=== PATIENT | female | born 1980 | race Caucasian/White ===

== ENCOUNTER 2023-09-25 09:06 | Emergency (ER) | payer OTHER, SELFPAY ==
[2023-09-25 09:15] VITALS: BP 128/93
[2023-09-25 09:56] VITALS: BP 115/84
[2023-09-25 10:00] VITALS: BMI 28.2
[2023-09-25 10:02] VITALS: BP 115/84
--- NOTE | 2023-09-25 10:23 | ED.GENMED ---
History of Present Illness
General
Chief Complaint: Back Pain
Source: patient
Exam Limitations: none
Time Seen by Provider: 09/25/23 10:08
Travel History
Have you had any contact with someone who has COVID-19?: No
Do you have any symptoms of coronavirus? Fever > 100 degrees, chills, cough, shortness of breath, sore throat, loss of taste or smell, muscle aches, or headache?: No
History of Present Illness
History of Present Illness:
42 year old female who with history of kidney transplant x 3 presents complaining of intermittent right-sided back pain getting worse over the past several weeks. She was diagnosed with bacterial vaginosis at the urgent care last week and has been
on metronidazole gel. She denies fevers but she is on antirejection medications. There has been no vomiting. Pain is not made worse with breathing or eating. No change in bowel movements. No known injury. No other complaints at this time.
Past History
Past History
ED Past Medical History: HTN, Hypercholesterolemia, Renal failure and Other (Crohn's disease and cardiomyopathy , kidney transplant)
ED Past Surgical History: Tonsilectomy and Other (Renal transplant, myringotomy tubes parathyroidectomy)
Social History
Tobacco: Non-smoker
Alcohol: Occasional
Drug: None
Personal: Single
Living: with family
Employment: Not employed
Family History
Family History: Negative Diabetes, Hypertension, Early CAD, Asthma or Cancer
Phy Exam
Physical Exam
Physical Exam:
General: Well-appearing female no acute respiratory distress
HEENT: Normocephalic atraumatic neck is supple
Heart: Regular rate and rhythm no murmurs
Lungs: Clear no wheeze or rales
Abdomen is soft mildly tender to the right mid and upper abdomen. No guarding or rebound negative Luna sign. Slightly tender to the left lower abdomen. Mild right-sided costovertebral angle tenderness as well
Extremities: No cyanosis
Skin warm no rash
Course
Orders/Labs/Results
Orders:
Orders
09/25/23 10:41
Complete Blood Count/With Diff Urgent
Urinalysis Reflex To Culture Urgent
Date Specimen was Collected: 09/25/23
Time Specimen was Collected: 10:30
09/25/23 11:26
Comprehensive Metabolic Panel Routine
Lipase Routine
09/25/23 12:15
US Abdomen Complete/Upper Urgent
Comment:
Reason For Exam: abdominal pain
Abnormal Lab Results
09/25/23 09/25/23
10:41 11:26
MPV 11.6 H fL
(7.4-10.4)
Absolute Neuts (auto) 9.0 H 10^3/uL
(1.4-6.5)
Absolute Lymphs (auto) 1.1 L 10^3/uL
(1.2-3.4)
Neutrophils % 85.8 H %
(42.2-75.2)
Lymphocytes % 10.1 L %
(20.5-51.1)
Chloride 110 H mmol/L
(98-107)
Carbon Dioxide 20 L mmol/L
(22-30)
Urine Ketones Trace A
(Negative)
09/25/23 10:41
09/25/23 11:26
Vital Signs
Initial and Last Documented VS:
Initial Vital Signs
Temp Pulse Resp BP Pulse Ox
98.3 F 80 18 128/93 96
09/25/23 09:15 09/25/23 09:15 09/25/23 09:15 09/25/23 09:15 09/25/23 09:15
Last Documented Vital Signs
Temp Pulse Resp BP Pulse Ox
98.4 F 78 18 115/84 98
09/25/23 10:02 09/25/23 10:02 09/25/23 10:02 09/25/23 10:02 09/25/23 10:02
MDM/Problems Addressed
Differential Diagnosis Includes:
Right mid abdominal pain and back pain. Question biliary colic versus musculoskeletal flank pain. Her functioning kidney transplant is in the right lower quadrant of the abdomen. Do not suspect renal colic we will check kidney functions
urinalysis and start with ultrasound
*Critical Care Note
Total Time (30-74mins, 75-104mins- exclusive of procedures): Not Applicable
Update Note
Update Note:
Ultrasound abdomen shows no obvious acute finding. There is a large mobile gallstone within the gallbladder without secondary signs of cholecystitis. Labs reviewed normal kidney functions normal liver functions and lipase is normal. UA without
any concerning finding. Patient states her pain in her back is improved. Considered CT of the abdomen but not indicated at this time. She plans on following up with her GI team. Stable for the
ED Attending Note
-
Portions of this chart may have been created with voice recognition software.� Occasional wrong word or��sound alike� substitutions may have occurred due to the inherent limitations of voice recognition software.
Discharge Plan
Departure
Patient Disposition: Home (Routine Discharge)
Date of Disposition: 09/25/23
Time of Disposition: 14:43
Patient with high blood pressure during this ER visit?: No
Discharge Problem:
Back pain
Instructions: Low Back Pain (DC)
Prescriptions:
No Action
prednisone 5 MG tablet
5 mg PO DAILY
melatonin 1 MG tablet
3 mg PO PRN PRN (Reason: prn)
tacrolimus 1 MG capsule
1 mg PO BID
azathioprine 50 MG tablet
50 mg PO DAILY
fluoxetine 20 MG capsule
20 mg PO DAILY
amlodipine 5 MG tablet
5 mg PO DAILY
cinacalcet 30 MG tablet
30 mg PO R Q48H
multivitamin [Daily Multiple] 1 EACH tablet
1 ea PO DAILY
labetalol 200 MG tablet
200 mg PO BID
sodium bicarbonate 650 MG tablet
1,300 mg PO BID
simvastatin 20 MG tablet
20 mg PO QPM
calcitriol 0.5 MCG capsule
0.5 mcg PO DAILY
calcium carbonate [Antacid (calcium carbonate)] 1 TABLET tablet,chewable
1,000 mg PO BID
furosemide 20 MG tablet
20 mg PO DAILY
Levonorgestrel
20 mcg VAG ONCE
Patient Comments:
IUD
oxycodone 5 MG tablet
5 mg PO Q6HPRN PRN (Reason: pain) Qty: 6 0RF
Referrals:
Yuan Harris MD [Active] -
Kulwant Salas MD [Family Provider] -
Activity Restrictions/Additional Instructions:
Please return here for worsening symptoms otherwise follow-up with your doctors as planned
Interventions
Interventions:
*Risk Screen - Suicide Last Done: 09/25/23 09:18
*General Assessment Last Done: 09/25/23 09:18
*Neglect/Abuse Screening Last Done: 09/25/23 09:18
*ED COVID-19 Vaccine History Last Done: 09/25/23 10:00
ED-Musculoskeletal Assessment Last Done: 09/25/23 09:56
Discharge Date and Time
Print Language: NIGERIEN
[2023-09-25 10:52] LABS: % Basophils 0.3 % (0-2); % Eosinophils 0.1 % (0-6); % Immature Granulocytes 0.3 % (0-0.5); % Lymphocytes 10.1 % (20.5-51.1); % Monocytes 3.4 % (1.7-9.3); % Neutrophils 85.8 % (42.2-75.2); Absolute Lymphocytes 1.1 10^3/uL (1.2-3.4); Absolute Monocytes 0.4 10^3/uL (0.1-0.6); Hematocrit 41.2 % (37.0-47.0); Hemoglobin 13.9 g/dL (12.0-16.0); Mean Corp Hgb Conc. 33.7 g/dL (33.0-37.0); Mean Corpuscular Hgb 30.5 pg (27.0-31.0); Mean Corpuscular Volume 90.5 fL (81.0-99.0); Mean Platelet Volume 11.6 fL (7.4-10.4); Nucleated Red Blood Cells % 0 %; Platelet Count 186 10^3/uL (130-400); Red Blood Cell Count 4.55 10^6/uL (4.20-5.40); Red Cell Dist. Width 12.5 % (11.5-14.5); White Blood Cell Count 10.4 10^3/uL (4.8-10.8)
[2023-09-25 10:54] LABS: Urine Albumin Negative (Neg - Trace); Urine Bilirubin Negative (Negative); Urine Character Clear (Clear); Urine Color Straw; Urine Glucose Negative (Negative); Urine Ketone Trace (Negative); Urine Leukocyte Negative (Negative); Urine Nitrite Negative (Negative); Urine Occult Blood Negative (Negative); Urine Specific Gravity 1.015 (<1.030); Urine Urobilinogen Negative (Neg - 1+)
[2023-09-25 11:54] LABS: ALT (SGPT) 16 U/L (0-35); AST (SGOT) 23 U/L (14-36); Alkaline Phosphatase 57 U/L (38-126); Blood Urea Nitrogen 12 mg/dl (7-17); Calcium 8.7 mg/dl (8.4-10.2); Carbon Dioxide 20 mmol/L (22-30); Chloride 110 mmol/L (98-107); Estimated Creatinine Clearance 94 ml/min; Glucose 97 mg/dl (70-99); Lipase 153 U/L (23-300); Potassium 4.3 mmol/L (3.5-5.1); Sodium 138 mmol/L (135-145); Total Protein 6.7 g/dl (6.3-8.2); eGFR > 60.00
[2023-09-25 14:59] VITALS: BP 115/70
== END 2023-09-25 14:59 | disposition home or self-care (01) ==
LOC: EMR 09:06
PROVIDERS: Physician Assistant; EMERGENCY PHYSICIAN Emergency Medicine; FAMILY PHYSICIAN Family Medicine
DX: M54.9 Dorsalgia, unspecified (principal)
CPT/HCPCS: 99284; 76700; 80053; 81003; 83690; 85025

== ENCOUNTER 2024-06-06 18:27 | Emergency (ER) | payer OTHER, SELFPAY ==
[2024-06-06 18:33] VITALS: BP 139/93
[2024-06-06 18:58] LABS: % Basophils 0.6 % (0-2); % Eosinophils 0.6 % (0-6); % Immature Granulocytes 0.1 % (0-0.5); % Lymphocytes 22.2 % (20.5-51.1); % Monocytes 5.4 % (1.7-9.3); % Neutrophils 71.1 % (42.2-75.2); Absolute Lymphocytes 1.5 10^3/uL (1.2-3.4); Absolute Monocytes 0.4 10^3/uL (0.1-0.6); Absolute Neutrophils 4.8 10^3/uL (1.4-6.5); Hematocrit 44.5 % (37.0-47.0); Mean Corp Hgb Conc. 33.7 g/dL (33.0-37.0); Mean Corpuscular Volume 91.9 fL (81.0-99.0); Mean Platelet Volume 10.4 fL (7.4-10.4); Nucleated Red Blood Cells % 0 %; Platelet Count 224 10^3/uL (130-400); Red Blood Cell Count 4.84 10^6/uL (4.20-5.40); Red Cell Dist. Width 12.6 % (11.5-14.5); White Blood Cell Count 6.7 10^3/uL (4.8-10.8)
[2024-06-06 19:12] LABS: ALT (SGPT) 23 U/L (0-35); AST (SGOT) 25 U/L (14-36); Albumin 4.6 g/dl (3.5-5.0); Alkaline Phosphatase 61 U/L (38-126); Blood Urea Nitrogen 11 mg/dl (7-17); Calcium 10.4 mg/dl (8.4-10.2); Carbon Dioxide 22 mmol/L (22-30); Chloride 105 mmol/L (98-107); Glucose 98 mg/dl (70-99); Sodium 136 mmol/L (135-145); Total Bilirubin 1.5 mg/dl (0.2-1.3); Total Protein 7.4 g/dl (6.3-8.2); eGFR > 60.00
[2024-06-06 19:18] LABS: Troponin I < 0.012 ng/ml
[2024-06-06] MEDS: TYLENOL 1000 MG PO (20:19)
[2024-06-06 21:24] VITALS: BP 127/94
[2024-06-06] MEDS: FIORICET 1 TAB PO (21:49)
--- NOTE | 2024-06-06 22:16 | ED.GENMED ---
History of Present Illness
General
Chief Complaint: Chest Pain
Time Seen by Provider: 06/06/24 21:01
History of Present Illness
History of Present Illness:
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 Patient reports headache is all around her head. Denies any inciting injury or trauma
at onset of headache. Denies any exertional component. Denies any visual changes. Denies focal weakness or numbness to her extremities. Does note headache in the past, however feels that this is worse. She can taking Tylenol with relief,
however headache then will return. Denies any known sick contacts. Denies any fever. Denies any neck stiffness. Does report that yesterday she was having palpitations and tightness in her chest. Denies known cardiac issues. Denies difficulty
breathing. Denies any medical complaints
Past History
Past History
ED Past Medical History: HTN, Hypercholesterolemia, Renal failure and Other (Crohn's disease and cardiomyopathy , kidney transplant)
ED Past Surgical History: Tonsilectomy and Other (Renal transplant, myringotomy tubes parathyroidectomy)
Social History
Tobacco: Non-smoker
Alcohol: Occasional
Drug: None
Personal: Single
Living: with family
Employment: Not employed
Family History
Family History: Negative Diabetes, Hypertension, Early CAD, Asthma or Cancer
Phy Exam
Physical Exam
Physical Exam:
General: Well-appearing, no clinical signs of dehydration, nontoxic and in no acute distress
HEENT: protecting airway, pupils equal and reactive, extraocular movements intact
Neck: appears supple
CV: Normal heart rate, regular rhythm
Resp: No accessory muscle use, no increased work of breathing, lungs clear to auscultation bilaterally
Abd: Soft and non-distended, no tenderness to palpation
Extremities: No deformities, no swelling
Neuro: alert, no focal neurologic deficit
: deferred
Rectal: deferred
Psych: Normal affect
Skin: Intact
Scores
Heart Score for Chest Pain Patients
STEMI patient?: No
History: Slightly or Non-Suspicious
ECG: Normal
Age: </= 45 years
Risk Factors: No Risk Factors
Troponin: </= Normal Limit
Heart Score for Chest Pain Patients: 0
Heart Score Risk: 2.5% MACE over next 6 weeks
Course
Orders/Labs/Results
Orders:
Orders
06/06/24 18:28
ECG [Electrocardiogram (*1)] Urgent
Reason for Study: Chest Pain
EKG- Treatment ONCE
06/06/24 18:47
Complete Blood Count/With Diff Urgent
Comprehensive Metabolic Panel Urgent
Troponin I Urgent
06/06/24 20:16
Acetaminophen [Tylenol] 1,000 mg .ROUTE .STK-MED ONE
06/06/24 20:19
Acetaminophen [Tylenol] 1,000 mg PO NOW STA
06/06/24 21:45
Butalb/Acetaminophen/Caffeine [Fioricet] 1 tab PO NOW STA
Abnormal Lab Results
06/06/24
18:47
Calcium 10.4 H mg/dl
(8.4-10.2)
Total Bilirubin 1.5 H mg/dl
(0.2-1.3)
06/06/24 18:47
06/06/24 18:47
Vital Signs
Initial and Last Documented VS:
Initial Vital Signs
Temp Pulse Resp BP Pulse Ox
98.1 F 82 18 139/93 100
06/06/24 18:33 06/06/24 18:33 06/06/24 18:33 06/06/24 18:33 06/06/24 18:33
Last Documented Vital Signs
Temp Pulse Resp BP Pulse Ox
98.1 F 78 18 127/94 99
06/06/24 18:33 06/06/24 21:24 06/06/24 21:24 06/06/24 21:24 06/06/24 21:24
MDM/Problems Addressed
MDM/Problems Addressed:
43-year-old female with history of congenital kidney issue status post transplant presenting for headache. Vital signs on arrival are normal.
On exam patient is well-appearing, no acute distress or discomfort. Patient reports she was concerned because the headache was persistent, and felt that her blood pressure was higher than usual. Blood pressure here within normal limits, without
any concern for hypertensive urgency or emergency. Unremarkable cardiac and pulmonary exam. Patient did note some preceding palpitations and chest tightness. EKG nonischemic. Patient had troponin prior to my assessment, undetectable. Patient
low risk for ACS, low risk by heart score, without present concern for ACS. Regarding her headache, appears consistent with tension quality versus migrainous component. No concern for infectious etiology, afebrile, no meningeal signs. No focal
neurologic deficits on exam or concern for acute central neurologic process. No report of trauma or concern for any acute traumatic intracranial abnormality. Blood pressure within normal limits, without concern for pseudotumor cerebri. No
tenderness to the temporal arteries, without concern for temporal arteritis. Do not feel patient requires any advanced imaging. Patient administered Fioricet, cannot receive ibuprofen products. At this time otherwise feel stable for discharge
with continued outpatient supportive therapy. Patient would like to go home. Strict return precautions were communicated and patient verbalized understanding
*EKG
Interpreted by ED Provider?: Yes
EKG Intrepretation Date: 06/06/24
EKG Intrepretation Time: 22:24
Interpretation: normal
Comparison EKG: no changes (10/04/19)
Heart Rate: 74
Rate: normal
Rhythm: sinus
[place]: normal axis
Interval: normal interval
QRS Pattern: normal QRS
Ischemia: no ischemia
*Critical Care Note
Total Time (30-74mins, 75-104mins- exclusive of procedures): Not Applicable
ED Attending Note
-
Portions of this chart may have been created with voice recognition software.� Occasional wrong word or��sound alike� substitutions may have occurred due to the inherent limitations of voice recognition software.
Discharge Plan
Departure
Patient Disposition: Home (Routine Discharge)
Date of Disposition: 06/06/24
Time of Disposition: 22:14
Patient with high blood pressure during this ER visit?: No
Condition: Good
Discharge Problem:
Migraine headache
Instructions: Migraine in adults
Prescriptions:
New
wstdcowbqh-vjpecsojvojsb-womp [Fioricet] 50-300-40 mg capsule
1 cap PO Q8H PRN (Reason: headache) Qty: 7 0RF
No Action
prednisone 5 MG tablet
5 mg PO DAILY
melatonin 1 MG tablet
3 mg PO PRN PRN (Reason: prn)
tacrolimus 1 MG capsule
1 mg PO BID
azathioprine 50 MG tablet
50 mg PO DAILY
fluoxetine 20 MG capsule
20 mg PO DAILY
amlodipine 5 MG tablet
5 mg PO DAILY
cinacalcet 30 MG tablet
30 mg PO R Q48H
multivitamin [Daily Multiple] 1 EACH tablet
1 ea PO DAILY
labetalol 200 MG tablet
200 mg PO BID
sodium bicarbonate 650 MG tablet
1,300 mg PO BID
simvastatin 20 MG tablet
20 mg PO QPM
calcitriol 0.5 MCG capsule
0.5 mcg PO DAILY
calcium carbonate [Antacid (calcium carbonate)] 1 TABLET tablet,chewable
1,000 mg PO BID
furosemide 20 MG tablet
20 mg PO DAILY
Levonorgestrel
20 mcg VAG ONCE
Patient Comments:
IUD
oxycodone 5 MG tablet
5 mg PO Q6HPRN PRN (Reason: pain) Qty: 6 0RF
Referrals:
Kulwant Salas MD [Family Provider] -
Activity Restrictions/Additional Instructions:
You were seen in the emergency department for headache and chest pain
You were found to have normal blood work and EKG. We suspect that you have a migraine.
Please follow-up closely with your primary care physician.
Return to the emergency department for any worsening of your symptoms, or any development of chest pain, difficulty breathing, abdominal pain with persistent vomiting and inability to tolerate food or liquid by mouth (concern for dehydration),
weakness or numbness or extremities, headache or confusion, fever greater than 100.4, or any additional symptoms that are concerning to you.
Thank you for choosing [facility].
Interventions
Interventions:
*Risk Screen - Suicide Last Done: 06/06/24 18:33
*General Assessment Last Done: 06/06/24 18:33
*Neglect/Abuse Screening Last Done: 06/06/24 18:33
ED- Fall Risk Assessment Last Done: 06/06/24 22:22
*ED COVID-19 Vaccine History Last Done: 06/06/24 21:19
*Nursing Disposition Last Done: 06/06/24 22:22
ED- Cardiac Assessment Last Done: 06/06/24 21:23
Discharge Date and Time
Discharge Date/Time: 06/06/24 22:22
Print Language: [place]
== END 2024-06-06 22:22 | disposition home or self-care (01) ==
LOC: EMR 18:27
PROVIDERS: Emergency Medicine; EMERGENCY PHYSICIAN Student in an Organized Health Care Education/Training Program; FAMILY PHYSICIAN Family Medicine
DX: R07.89 Other chest pain (principal); I10 Essential (primary) hypertension; E78.00 Pure hypercholesterolemia, unspecified; K50.90 Crohn's disease, unspecified, without complications; I42.9 Cardiomyopathy, unspecified; Z82.49 Family history of ischemic heart disease and other diseases of the circulatory system; Z94.0 Kidney transplant status; G43.909 Migraine, unspecified, not intractable, without status migrainosus
CPT/HCPCS: 99283; 80053; 84484; 85025; 93005

== ENCOUNTER 2024-06-30 07:34 | Emergency (ER) | payer OTHER, SELFPAY ==
[2024-06-30 07:43] VITALS: BP 127/91
[2024-06-30 09:03] VITALS: BP 131/84; BMI 23.5
--- NOTE | 2024-06-30 09:04 | ED.GENMED ---
History of Present Illness
General
Chief Complaint: Anal/Rectal Problem
Time Seen by Provider: 06/30/24 08:18
History of Present Illness
History of Present Illness:
43-year-old female with history of renal transplant x 2 presents to the emergency department for evaluation of 'anal cyst' that is worsening despite being on Augmentin for the past 2 days. No fevers or chills. No history of similar.
Past History
Past History
ED Past Medical History: HTN, Hypercholesterolemia, Renal failure and Other (Crohn's disease and cardiomyopathy , kidney transplant)
ED Past Surgical History: Tonsilectomy and Other (Renal transplant, myringotomy tubes parathyroidectomy)
Social History
Tobacco: Non-smoker
Alcohol: Occasional
Drug: None
Personal: Single
Living: with family
Employment: Not employed
Family History
Family History: Negative Diabetes, Hypertension, Early CAD, Asthma or Cancer
Review of Systems
Review of Systems
Allergies reviewed?: Yes
All Other Systems: ROS reviewed and negative except as documented in HPI and ROS
Phy Exam
Physical Exam
Physical Exam:
GEN: Well appearing, NAD, WDWN
HEENT: Oral mucosa moist, no scleral icterus
Cardiac: Regular rate
Lung: No respiratory distress, no tachypnea
Rectal: 2 x 1 cm fluctuant abscess just inferior and lateral to the left anal verge with moderate surrounding cellulitis and induration, does not cross the anal verge
MSK: No gross deformity or injuries
Skin: Good color, no pallor or jaundice, no rashes
Neuro: AO x3, moves all extremities freely
Psych: Calm, cooperative
Course
Orders/Labs/Results
Orders:
Orders
06/30/24 09:50
Wound Culture [Wound/Abscess/Other Culture] Urgent
MIQUEL Source: Abscess
Specimen Description:
Date Specimen was Collected: 06/30/24
Time Specimen was Collected: 09:44
Comment: perianal
Vital Signs
Initial and Last Documented VS:
Initial Vital Signs
Temp Pulse Resp BP Pulse Ox
97.8 F 113 16 127/91 97
06/30/24 07:43 06/30/24 07:43 06/30/24 07:43 06/30/24 07:43 06/30/24 07:43
Last Documented Vital Signs
Temp Pulse Resp BP Pulse Ox
97.6 F 82 20 131/84 99
06/30/24 09:03 06/30/24 09:03 06/30/24 09:03 06/30/24 09:03 06/30/24 09:03
Procedures
Incision/Drainage/Joint Aspiration
Left perianal:
Anethesia: 1% Lidocaine with Epi
Preparation: cleaned with alcohol wipe
Type of procedure: incise and drain
Nature of site: abscess
Description of abscess: less than 3cm
Loculations broken up: Yes
How much fluid was obtained?: large amount
Fluid description: purulent
Treatment: left open for drainage
MDM/Problems Addressed
MDM/Problems Addressed:
Will continue Augmentin, good results with incision and drainage, discussed supportive care. Encourage close primary care follow-up in 48 hours for wound reassessment given her immunocompromise
*Critical Care Note
Total Time (30-74mins, 75-104mins- exclusive of procedures): Not Applicable
ED Attending Note
-
Portions of this chart may have been created with voice recognition software.� Occasional wrong word or��sound alike� substitutions may have occurred due to the inherent limitations of voice recognition software.
Discharge Plan
Departure
Patient Disposition: Home (Routine Discharge)
Date of Disposition: 06/30/24
Time of Disposition: 09:04
Patient with high blood pressure during this ER visit?: No
Discharge Problem:
Abscess, perianal
Instructions: Anal Abscess and Fistula, Adult (DC)
Prescriptions:
No Action
prednisone 5 MG tablet
5 mg PO DAILY
melatonin 1 MG tablet
3 mg PO PRN PRN (Reason: prn)
tacrolimus 1 MG capsule
1 mg PO BID
azathioprine 50 MG tablet
50 mg PO DAILY
fluoxetine 20 MG capsule
20 mg PO DAILY
amlodipine 5 MG tablet
5 mg PO DAILY
cinacalcet 30 MG tablet
30 mg PO R Q48H
multivitamin [Daily Multiple] 1 EACH tablet
1 ea PO DAILY
labetalol 200 MG tablet
200 mg PO BID
sodium bicarbonate 650 MG tablet
1,300 mg PO BID
simvastatin 20 MG tablet
20 mg PO QPM
calcitriol 0.5 MCG capsule
0.5 mcg PO DAILY
calcium carbonate [Antacid (calcium carbonate)] 1 TABLET tablet,chewable
1,000 mg PO BID
furosemide 20 MG tablet
20 mg PO DAILY
Levonorgestrel
20 mcg VAG ONCE
Patient Comments:
IUD
oxycodone 5 MG tablet
5 mg PO Q6HPRN PRN (Reason: pain) Qty: 6 0RF
etricpwmbt-mnnelydaxuwaa-cywa [Fioricet] 50-300-40 mg capsule
1 cap PO Q8H PRN (Reason: headache) Qty: 7 0RF
Activity Restrictions/Additional Instructions:
Wash the rectal area after all bowel movements
Continue Augmentin
Keep area covered with gauze
Follow up with your primary doctor in 48 hours for wound reassessment
Return to the ER if your symptoms worsen
Interventions
Interventions:
*Risk Screen - Suicide Last Done: 06/30/24 07:43
*General Assessment Last Done: 06/30/24 09:03
*Neglect/Abuse Screening Last Done: 06/30/24 07:43
ED- Fall Risk Assessment Last Done: 06/30/24 09:03
*ED COVID-19 Vaccine History Last Done: 06/30/24 09:03
*Nursing Disposition Last Done: 06/30/24 09:13
IP-Urbcdd-Zpoesdpmcp Assessment Last Done: 06/30/24 09:03
ED-Skin Assessment Last Done: 06/30/24 09:03
Discharge Date and Time
Discharge Date/Time: 06/30/24 09:13
Print Language: [email or web address]
== END 2024-06-30 09:13 | disposition home or self-care (01) ==
LOC: EMR 07:34
PROVIDERS: EMERGENCY PHYSICIAN Emergency Medicine; FAMILY PHYSICIAN Family Medicine
DX: K61.0 Anal abscess (principal); I10 Essential (primary) hypertension; E78.00 Pure hypercholesterolemia, unspecified; K50.90 Crohn's disease, unspecified, without complications; I42.9 Cardiomyopathy, unspecified; Z82.49 Family history of ischemic heart disease and other diseases of the circulatory system; Z94.0 Kidney transplant status
CPT/HCPCS: 99283; 46050; 87070; 87077; 87186; 87205

== ENCOUNTER → 2024-08-14 14:47 | Outpatient (REF) | payer OTHER, SELFPAY | LOC: HWRAD 14:47 | PROVIDERS: ATTENDING PHYSICIAN Nurse Practitioner Family | DX: R22.9 Localized swelling, mass and lump, unspecified (principal) | CPT/HCPCS: 76604 ==

== ENCOUNTER → 2024-10-25 13:49 | Outpatient (REF) | payer OTHER, SELFPAY | LOC: HWRAD 13:49 | PROVIDERS: ATTENDING PHYSICIAN Nurse Practitioner Family | DX: R10.11 Right upper quadrant pain (principal) | CPT/HCPCS: 76700 ==

== ENCOUNTER 2024-11-08 06:07 | Day surgery (SDC) | payer OTHER, SELFPAY ==
[2024-11-08 06:10] VITALS: BP 120/73
[2024-11-08 06:15] VITALS: BMI 27.5
[2024-11-08 06:31] VITALS: BMI 27.5
[2024-11-08] MEDS: NORMOSOL-R/PLASMALYTE-A 1000 IV (06:37)
[2024-11-08] MEDS: TYLENOL 1000 MG PO (06:37)
[2024-11-08 08:48] VITALS: BP 122/81
[2024-11-08 09:00] VITALS: BP 105/72
[2024-11-08 09:15] VITALS: BP 104/76
[2024-11-08 09:30] VITALS: BP 106/81
== END 2024-11-08 09:45 | disposition home or self-care (01) ==
LOC: SDS 06:07
PROVIDERS: ATTENDING PHYSICIAN Surgery
DX: D17.39 Benign lipomatous neoplasm of skin and subcutaneous tissue of other sites (principal); Z94.0 Kidney transplant status; Z79.60 Long term (current) use of unspecified immunomodulators and immunosuppressants
CPT/HCPCS: 23071; 88304; 87070

== ENCOUNTER 2024-12-17 06:15 | Day surgery (SDC) | payer OTHER, SELFPAY | END 2024-12-17 11:01 | disposition home or self-care (01) | LOC: GI 06:15 | PROVIDERS: ATTENDING PHYSICIAN Surgery | DX: Z12.11 Encounter for screening for malignant neoplasm of colon (principal) | CPT/HCPCS: G0121 ==